=== PATIENT | female | born 1980 | race Caucasian/White ===

== ENCOUNTER 2018-08-12 12:10 | Emergency (ER) | payer BC, MEDICAID, OTHER ==
[2018-08-12 12:29] VITALS: BP 158/105
--- NOTE | 2018-08-12 12:40 | EDM.PDOC ---
ED HPI GENERAL MEDICAL PROBLEM - General Chief Complaint: Back Pain or Injury Stated Complaint: BACK PAIN Time Seen by Provider: 08/12/18 12:39 Source of Information: Reports: Patient - History of Present Illness INITIAL COMMENTS - FREE TEXT/NARRATIVE: Patient is here for evaluation of worsening chronic lower back pain. She states that she has had this for many years, does get pain injections from pain management at [facility] in [place] for the last one was in February 2018. She presents to the emergency department today as she is having worsening lower back pain, right in the middle of the very low back. She reports bilateral leg leg weakness, she feels it's fairly equal both sides. She has also had new onset urinary incontinence without stress or urgency. Neck patient denies any fever or chills. Denies any chest pain or shortness of breath. Denies any incontinence of stool. Denies a numbness or tingling/no saddle paresthesia. 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: motrin last dose pt is not sure-maybe midnoc Lower Back Pain Score (Numeric/FACES): 10 - Related Data Allergies Allergy/AdvReac Type Severity Reaction Status Date / Time latex Allergy Rash Verified 08/13/17 15:52 LEGAL INSTRUCTOR topiramate [From Topamax] AdvReac Hyperactivi Verified 08/13/17 15:52 LEGAL INSTRUCTOR ty zolpidem tartrate AdvReac Hallucinati Verified 08/13/17 15:52 LEGAL INSTRUCTOR [From Ambien] ons Home Meds: Home Meds Thyroid,Pork [[place] Thyroid] 180 mg PO DAILY 07/29/16 [History] Lisinopril 10 mg PO BID 30 Days #60 tablet 08/14/17 [Rx] Acetaminophen/HYDROcodone [[place] 325-5 MG] 1 tab PO Q6H PRN #10 tablet 08/12/18 [Rx] Albuterol Sulfate [Proventil Hfa] 2 puff INH ASDIRECTED 08/12/18 [History] Amoxicillin 500 mg PO BID 08/12/18 [History] Cyclobenzaprine [Flexeril] 10 mg PO TID PRN #30 tab 08/12/18 [Rx] Meloxicam 7.5 mg PO DAILY PRN #30 tablet 08/12/18 [Rx] Ondansetron [Zofran] 4 mg PO Q6H PRN #10 tab 08/12/18 [Rx] Past Medical History Other HEENT History: wears glasses Cardiovascular History: Reports: Hypertension Respiratory History: Reports: Asthma Gastrointestinal History: Reports: Other (See Below) Other Gastrointestinal History: occasional heartburn Genitourinary History: Reports: Renal Calculus BOAT WORKER History: Reports: Polycystic Ovaries, Musculoskeletal History: Reports: Arthritis, Back Pain, Chronic, Fibromyalgia, Other (See Below) Neurological History: Reports: Other (See Below) Other Neuro History: states has herniated cervical disc Psychiatric History: Reports: Anxiety, Depression Endocrine/Metabolic History: Reports: Hypothyroidism, Obesity/BMI 30+ - Past Surgical History Head Surgeries/Procedures: Reports: None Female Surgical History: Reports: Section, LEEP, Tubal Ligation Social & Family History - Family History Family Medical History: Noncontributory - Tobacco Use Smoking Status *Q: Current Every Day Smoker Years of Tobacco use: 16 Packs/Tins Daily: 0.5 - Caffeine Use Caffeine Use: Reports: Coffee, Soda - Recreational Drug Use Recreational Drug Use: No ED ROS GENERAL - Review of Systems Review Of Systems: See Below Constitutional: Reports: No Symptoms Respiratory: Reports: No Symptoms Cardiovascular: Reports: No Symptoms GI/Abdominal: Reports: No Symptoms, Other (Denies loss of bowel function) : Reports: Incontinence. Denies: Discharge, Dysuria, Frequency, Hematuria Musculoskeletal: Reports: Back Pain, Muscle Pain, Muscle Stiffness Skin: Reports: No Symptoms Neurological: Reports: Weakness Psychiatric: Reports: No Symptoms (Bilateral lower extremities) ED EXAM,LOWER BACK PAIN/INJURY - Physical Exam Exam: See Below Exam Limited By: No Limitations General Appearance: Alert, WD/WN, Moderate Distress Respiratory/Chest: No Respiratory Distress, Lungs Clear, Normal Breath Sounds Cardiovascular: Normal Peripheral Pulses, Regular Rate, Rhythm, No Murmur Back Exam: Normal Inspection, Decreased Range of Motion (Due to pain), Paraspinal Tenderness (Lumbar), Other (Lumbar spine without ecchymosis or deformity. Moderate tenderness to sacrum as well as bilateral SI joints and lumbar paraspinous muscles. Lumbar range of motion very limited due to pain. Unable to obtain SLR due to pain, patient had pain with lying flat..). No: CVA Tenderness (L), CVA Tenderness (R), Vertebral Tenderness Neurological: Alert, Normal Mood/Affect, Oriented x 3 Course - Vital Signs Last Recorded V/S: Last Vital Signs Temp 98.2 F 08/12/18 12:28 Pulse 98 08/12/18 12:28 Resp 20 08/12/18 12:28 BP 158/105 H 08/12/18 12:28 Pulse Ox 99 08/12/18 12:28 - Orders/Labs/Meds Orders: Active Orders 24 hr Category Date Time Status Lumbar Spine 2 or 3V [CR] Stat Exams 08/12/18 13:41 Taken Saline Lock Insert [OM.PC] Routine Oth 08/12/18 12:57 Ordered Labs: Laboratory Tests 08/12/18 Range/Units 16:37 Urine Color Yellow (Yellow) Urine Appearance Slt cloudy H (Clear) Urine pH 6.0 (5.0-8.0) Ur Specific [place] > or = 1.030 (1.005-1.030) Urine Protein 2+ H (Negative) Urine Glucose (UA) Negative (Negative) Urine Ketones Trace H (Negative) Urine Occult Blood Negative (Negative) Urine Nitrite Negative (Negative) Urine Bilirubin 1+ H (Negative) Urine Urobilinogen 0.2 (0.2-1.0) Ur Leukocyte Esterase Negative (Negative) Urine RBC 0-5 (0-5) /hpf Urine WBC 0-5 (0-5) /hpf Ur Epithelial Cells 10-20 H (0-5) /hpf Amorphous Sediment Few H (NOT SEEN) /hpf Urine Bacteria Moderate H (FEW) /hpf Urine Mucus Moderate H (FEW) /hpf Meds: Medications Discontinued Medications Generic Name Dose Route Start Last Admin Trade Name Eleni PRN Reason Stop Dose Admin Hydrocodone Bitart/Acetaminophen 1 tab 08/12/18 14:03 08/12/18 14:39 [place] 325-5 Mg PO 08/12/18 14:04 1 tab ONETIME ONE Administration Cyclobenzaprine HCl 10 mg 08/12/18 12:57 08/12/18 13:30 Flexeril PO 08/12/18 12:58 10 mg ONETIME ONE Administration Ketorolac Tromethamine 30 mg 08/12/18 12:57 08/12/18 13:27 Toradol IVPUSH 08/12/18 12:58 Not Given ONETIME ONE Ketorolac Tromethamine 60 mg 08/12/18 13:27 08/12/18 13:30 Toradol IM 08/12/18 13:28 60 mg ONETIME ONE Administration Ondansetron HCl 4 mg 08/12/18 14:03 08/12/18 14:39 Zofran Odt PO 08/12/18 14:04 4 mg ONETIME ONE Administration Sodium Chloride 10 ml 08/12/18 12:57 Saline Flush FLUSH ASDIRECTED PRN Keep Vein Open - Re-Assessments/Exams Free Text/Narrative Re-Assessment/Exam: Urinalysis concentrated but no sign of infection. No abnormality noted on lumbar x-ray. With patient acutely worsening symptoms as well as urinary incontinence lumbar MRI was performed. This demonstrated mild degenerative changes. No areas of neural foraminal stenosis. I suspect a good portion of patient's symptoms are due to muscle spasm. Patient will take meloxicam, cyclobenzaprine as needed for muscle spasms. Small quantity of [place] was given for breakthrough pain. Patient is to follow-up with her mirror painter to discuss repeat injection or further treatment options. She will follow-up with her PCP for urinary symptoms. 08/12/18 21:17 Departure - Departure Time of Disposition: 17:34 Disposition: Home, Self-Care 01 Condition: Fair Clinical Impression: Bulging lumbar disc Lower back pain Qualifiers: Chronicity: chronic Back pain laterality: bilateral Sciatica laterality: bilateral sciatica - Discharge Information Prescriptions: Acetaminophen/HYDROcodone [[place] 325-5 MG] 1 tab PO Q6H PRN #10 tablet PRN Reason: Pain Cyclobenzaprine [Flexeril] 10 mg PO TID PRN #30 tab PRN Reason: Muscle Spasm Meloxicam 7.5 mg PO DAILY PRN #30 tablet PRN Reason: Pain Ondansetron [Zofran] 4 mg PO Q6H PRN #10 tab PRN Reason: Nausea Instructions: Back Pain, Adult Referrals: Ailyn Romano NP [Primary Care Provider] - Forms: ED Department Discharge Additional Instructions: Take the meloxicam one to 2 tablets my mouth daily for inflammation. Take the cyclobenzaprine, 10 mg up to 3 times a day as needed for muscle spasm. Take the hydrocodone as needed for breakthrough pain. He had been prescribed Zofran to help with nausea if that should occur with this medication. Follow-up with your primary provider and ear pain management provider next week or return to the emergency room for any new or worsening symptoms. - My Orders Last 24 Hours: My Active Orders 08/12/18 12:57 Saline Lock Insert [OM.PC] Routine 08/12/18 13:41 Lumbar Spine 2 or 3V [CR] Stat - Assessment/Plan Last 24 Hours: My Active Orders 08/12/18 12:57 Saline Lock Insert [OM.PC] Routine 08/12/18 13:41 Lumbar Spine 2 or 3V [CR] Stat
[2018-08-12] MEDS ORDERED: Ketorolac 30 MG/ML SDV IVPUSH ONE (12:57)
[2018-08-12] MEDS ORDERED: Sodium Chloride 0.9% 10 ML Syringe FLUSH PRN (12:57)
[2018-08-12] MEDS ORDERED: Cyclobenzaprine 10 MG Tab PO ONE (12:57)
[2018-08-12] MEDS ORDERED: Ketorolac 60 MG/2 ML SDV IM ONE (13:27)
[2018-08-12] MEDS ORDERED: Ondansetron 4 MG Tab.DIS PO ONE (14:03)
[2018-08-12] MEDS ORDERED: Acetaminophen/HYDROcodone 325-5 MG Tab PO ONE (14:03)
--- NOTE | 2018-08-12 15:57 | MR ---
MRI lumbar spine Technique: T1 weighted axial images were obtained from above the T12-L1 disc inferiorly through the L5-S1 disc. T2-weighted axial images were obtained from above the L1-L2 disc inferiorly through the L5-S1 disc. T1, T2 and fat suppressed inversion recovery sagittal images were obtained. Comparison: Prior lumbar spine plain film study performed on the same day (2:07 PM) Findings: T12-L1: Posterior disc is preserved. No central canal stenosis or neural foraminal stenosis is seen. L1-L2: Small disc protrusion or small herniation is seen posterolaterally to the left of midline on the left side. This measures about 4 mm in size. No central canal stenosis or neural foraminal stenosis is seen. L2-L3: Minimal posterolateral disc bulging is seen. Findings are slightly worse on the left side projecting into the inferior neural foramina. No central canal stenosis is noted. Neural foramina are patent where the nerve roots exit. L3-L4: Minimal circumferential disc bulge is seen. Posterior disc has a planar margin. No central canal stenosis is seen. Neural foramina are patent where the nerve roots exit. L4-L5: Slight circumferential disc bulge is seen. No central canal stenosis is noted. Neural foramina are patent where the nerve roots exit. L5-S1: Posterior disc is preserved. No central canal stenosis or neural foraminal stenosis is seen. Degenerative dehydration change is noted within the L2-3 and L4-L5 discs. Conus medullaris and cauda equina shows no abnormal signal or mass. Impression: 1. Mild degenerative change as noted above. Diagnostic code #2
--- NOTE | 2018-08-13 15:18 | CR ---
Lumbar spine: AP and lateral views of the lumbar spine were obtained. Comparison: No previous study. Slight scoliosis is noted. Minimal posterior disc space narrowing is noted at L4-L5. Moderate disc space narrowing is noted at T10-T11 as well as T11-T12 and T12-L1. Mild disc space narrowing is noted at L1-L2. Vertebral body heights are maintained. Minimal scattered endplate osteophytes are seen most prominent at T10-T11. Pedicles as well as visualized transverse and spinous processes are intact. Sacroiliac joints are within normal limits. Impression: 1. Mild scoliosis and degenerative change. Diagnostic code #2
== END 2018-08-12 17:53 | disposition home or self-care (01) ==
LOC: JD.ED 12:10
DX: M51.86 Other intervertebral disc disorders, lumbar region (principal); M54.42 Lumbago with sciatica, left side; M54.41 Lumbago with sciatica, right side; I10 Essential (primary) hypertension; E03.9 Hypothyroidism, unspecified; F41.9 Anxiety disorder, unspecified; F32.9 Major depressive disorder, single episode, unspecified; F17.210 Nicotine dependence, cigarettes, uncomplicated; Z91.040 Latex allergy status; Z88.8 Allergy status to other drugs, medicaments and biological substances; Z79.899 Other long term (current) drug therapy
CPT/HCPCS: 72100; 72148; 81001; 96372; 99284; A9270; J1885

== ENCOUNTER 2024-04-19 10:00 | Day surgery (SDC) | payer BC, MEDICAID ==
[~2024-04-19 10:00] MED LIST: Dexamethasone 4 MG/ML 5 ML MDV ONE; HYDROmorphone 0.5 MG/0.5 ML Syringe IVPUSH PRN; Ketorolac 30 MG/ML SDV ONE; Lidocaine 2% 5 ML SDV ONE; Midazolam 1 MG/ML 2 ML SDV ONE; Ondansetron 4 MG/2 ML SDV IVPUSH PRN; Ondansetron 4 MG/2 ML SDV ONE; Propofol 200 MG/20 ML SDV ONE; Ropivacaine 0.5% 5 MG/ML 30 ML SDV ONE; Sodium Chloride 0.9% 10 ML Syringe FLUSH PRN; Sodium Chloride 0.9% 10 ML Syringe FLUSH SCH; Sodium Chloride 0.9% 100 ML ONE; ceFAZolin 2 GM Vial ONE; dexmedeTOMIDine HCl 200 MCG/2 ML SDV ONE; fentaNYL 100 MCG/2 ML SDV IVPUSH PRN; fentaNYL 100 MCG/2 ML SDV ONE
[2024-04-19] MEDS: Lactated Ringers 1,000 ML IV SCH (10:30)
[2024-04-19] MEDS: Acetaminophen 325 MG Tab PO ONE (10:39)
[2024-04-19] MEDS: Scopalamine 1mg/3day Transdermal Patch TOP PRN (10:40)
[2024-04-19] MEDS: Gabapentin 300 MG Cap PO ONE (10:40)
[2024-04-19] MEDS ORDERED: ceFAZolin 2 GM Vial ONE (11:16)
[2024-04-19] MEDS ORDERED: fentaNYL 100 MCG/2 ML SDV ONE (11:20)
[2024-04-19] MEDS: EPINEPHrine 1 MG/ML SDV ONE (11:30)
[2024-04-19] MEDS: Lidocaine 1% with EPINEPHrine 1:100,000 20 ML MDV ONE (11:30)
[2024-04-19] MEDS: Bupivacaine 0.5% 30 ML SDV ONE (11:30)
[2024-04-19] MEDS ORDERED: traMADol 50 MG Tab PO PRN (12:39)
[2024-04-19 13:41] VITALS: BP 126/74; PULSE 76
== END 2024-04-19 13:35 | disposition home or self-care (01) ==
LOC: JD.SDS 10:00
PROVIDERS: ATTEND Surgery
DX: N60.11 Diffuse cystic mastopathy of right breast (principal); J45.909 Unspecified asthma, uncomplicated; I10 Essential (primary) hypertension; E03.9 Hypothyroidism, unspecified; Z79.890 Hormone replacement therapy; Z79.899 Other long term (current) drug therapy; Z91.040 Latex allergy status; Z88.8 Allergy status to other drugs, medicaments and biological substances
CPT/HCPCS: 19301; A9270; J0171; J0665; J0690; J1100; J1885; J2250; J2405; J2704; J2795; J3010; J3490; J7120; 00400; 64450

== ENCOUNTER 2024-07-22 20:09 | Emergency (ER) | payer BC ==
[2024-07-22] MEDS ORDERED: Sodium Chloride 0.9% 10 ML Syringe FLUSH PRN (20:47)
[2024-07-22 20:54] LABS: BASOPHILS ABSOLUTE AUTO 0.1 K/mm3 (0.0-0.2); BASOPHILS PERCENT AUTO 0.5 % (0.0-1.0); EOSINOPHILS ABSOLUTE AUTO 0.4 K/mm3 (0.0-0.4); EOSINOPHILS PERCENT AUTO 3.9 % (0.0-6.0); HEMATOCRIT 42.9 % (37.0-47.0); HEMOGLOBIN 14.3 gm/dl (12.0-16.0); IMMATURE GRAN ABSOLUTE AUTO 0.03 K/mm3 (0.00-0.05); IMMATURE GRAN PERCENT AUTO 0.3 % (0.0-0.4); LYMPHOCYTES ABSOLUTE AUTO 2.5 K/mm3 (1.0-4.8); LYMPHOCYTES PERCENT AUTO 26.7 % (24.0-44.0); MEAN CORPUSCULAR HEMOGLOBIN 29.5 pg (28.0-32.0); MEAN CORPUSCULAR HGB CONC 33.3 g/dl (32.0-36.0); MEAN CORPUSCULAR VOLUME 88.6 fl (83.0-99.0); MEAN PLATELET VOLUME 10.3 fl (9.4-12.3); MONOCYTES ABSOLUTE AUTO 0.5 K/mm3 (0.0-0.8); MONOCYTES PERCENT AUTO 5.6 % (0.0-8.0); NEUTROPHILS ABSOLUTE AUTO 5.9 K/mm3 (1.8-7.7); PLATELET COUNT,PLT 285 K/mm3 (150-400); RED BLOOD CELL COUNT 4.84 M/mm3 (4.10-5.30); WHITE BLOOD CELL COUNT,WBC 9.29 K/mm3 (3.9-11.3)
[2024-07-22] MEDS: Sodium Chloride 0.9% 1,000 ML IV ONE (20:56)
[2024-07-22] MEDS: Ketorolac 15 MG/ML SDV IVPUSH ONE (20:56)
[2024-07-22 21:08] LABS: A/G RATIO 0.9 (1-2); ALBUMIN 3.3 g/dl (3.4-5.0); ANION GAP 12.6 (5-15); BILIRUBIN TOTAL 0.3 mg/dL (0.2-1.0); BUN/CREATININE RATIO 8.9 (14-18); CALCIUM 8.9 mg/dL (8.5-10.1); CREATININE 0.9 mg/dL (0.55-1.02); EST CRCL DRUG DOSING (CG) 91.09 mL/min; POTASSIUM,K 3.6 mEq/L (3.5-5.1); PROTEIN TOTAL,TP 6.8 g/dl (6.4-8.2)
[2024-07-22] MEDS: Iopamidol 612 MG/ML 30 ML SDV IVPUSH ONE (21:23)
[2024-07-22] MEDS: Sodium Chloride 0.9% 10 ML Syringe FLUSH ONE (21:23)
[2024-07-22] MEDS: Iopamidol 612 MG/ML 100 ML Bottle IVPUSH ONE (21:23)
[2024-07-22] MEDS: HYDROmorphone 1 MG/ML Syringe IVPUSH ONE (22:28)
[2024-07-22] MEDS: Ondansetron 4 MG/2 ML SDV IVPUSH ONE (23:26)
[2024-07-22 23:40] VITALS: BP 110/78; PULSE 88
== END 2024-07-22 23:32 | disposition home or self-care (01) ==
LOC: JD.ED 20:09
DX: K57.32 Diverticulitis of large intestine without perforation or abscess without bleeding (principal); M54.42 Lumbago with sciatica, left side; M54.41 Lumbago with sciatica, right side; R74.8 Abnormal levels of other serum enzymes; I10 Essential (primary) hypertension; J45.909 Unspecified asthma, uncomplicated; E66.9 Obesity, unspecified; E03.9 Hypothyroidism, unspecified; Z68.41 Body mass index [BMI] 40.0-44.9, adult; Z79.899 Other long term (current) drug therapy; Z79.890 Hormone replacement therapy; Z79.51 Long term (current) use of inhaled steroids; Z91.040 Latex allergy status; Z88.8 Allergy status to other drugs, medicaments and biological substances
CPT/HCPCS: 36415; 74177; 80053; 83690; 84703; 85025; 96361; 96374; 96375; 99284; J1171; J1885; J2405; J7030; Q9967

== ENCOUNTER 2024-11-20 04:21 | Emergency (ER) | payer BC ==
[2024-11-20] MEDS ORDERED: Sodium Chloride 0.9% 10 ML Syringe FLUSH PRN (04:41)
[2024-11-20] MEDS: Albuterol/Ipratropium 3.0-0.5 MG/3 ML Neb Soln NEB ONE (04:49)
[2024-11-20] MEDS: methylPREDNISolone Sodium Succinate 125 MG/2 ML SDV IVPUSH ONE (04:57)
[2024-11-20 05:16] LABS: ALANINE AMINOTRANSFERASE,ALT 75 U/L (14-59); ALBUMIN 3.5 g/dl (3.4-5.0); ALKALINE PHOSPHATASE 83 U/L (46-116); ANION GAP 13.8 (5-15); ASPARTATE AMNIOTRANSFERASE,AST 31 U/L (15-37); BILIRUBIN TOTAL 0.5 mg/dL (0.2-1.0); BLOOD UREA NITROGEN,BUN 11 mg/dL (7-18); BUN/CREATININE RATIO 12.2 (14-18); CALCIUM 8.5 mg/dL (8.5-10.1); CARBON DIOXIDE,CO2 26 mEq/L (21-32); CHLORIDE,CL 104 mEq/L (98-107); CREATININE 0.9 mg/dL (0.55-1.02); EST CRCL DRUG DOSING (CG) 91.09 mL/min; ESTIMATED GFR 80 mL/min (>60); GLUCOSE RANDOM 137 mg/dL (70-99); MAGNESIUM 1.8 mg/dL (1.8-2.4); POTASSIUM,K 3.8 mEq/L (3.5-5.1); SODIUM,NA 140 mEq/L (136-145)
[2024-11-20 05:33] LABS: BASOPHILS ABSOLUTE AUTO 0.1 K/mm3 (0.0-0.2); BASOPHILS PERCENT AUTO 0.7 % (0.0-1.0); EOSINOPHILS ABSOLUTE AUTO 0.4 K/mm3 (0.0-0.4); HEMATOCRIT 45.2 % (37.0-47.0); HEMOGLOBIN 15.1 gm/dl (12.0-16.0); IMMATURE GRAN ABSOLUTE AUTO 0.02 K/mm3 (0.00-0.05); IMMATURE GRAN PERCENT AUTO 0.2 % (0.0-0.4); LYMPHOCYTES ABSOLUTE AUTO 2.4 K/mm3 (1.0-4.8); LYMPHOCYTES PERCENT AUTO 27.7 % (24.0-44.0); MEAN CORPUSCULAR HEMOGLOBIN 29.6 pg (28.0-32.0); MEAN CORPUSCULAR HGB CONC 33.4 g/dl (32.0-36.0); MEAN CORPUSCULAR VOLUME 88.6 fl (83.0-99.0); MEAN PLATELET VOLUME 10.7 fl (9.4-12.3); MONOCYTES ABSOLUTE AUTO 0.5 K/mm3 (0.0-0.8); MONOCYTES PERCENT AUTO 6.2 % (0.0-8.0); NEUTROPHILS ABSOLUTE AUTO 5.2 K/mm3 (1.8-7.7); NEUTROPHILS PERCENT AUTO 60.2 % (41.0-71.0); PLATELET COUNT,PLT 287 K/mm3 (150-400); WHITE BLOOD CELL COUNT,WBC 8.59 K/mm3 (3.9-11.3)
[2024-11-20 05:35] LABS: TROPONIN I HIGH SENSITIVITY < 4 pg/mL (<=51)
[2024-11-20 06:37] VITALS: BP 124/111; PULSE 102
== END 2024-11-20 06:33 | disposition home or self-care (01) ==
LOC: JD.ED 04:21
DX: J45.41 Moderate persistent asthma with (acute) exacerbation (principal); R07.9 Chest pain, unspecified; I10 Essential (primary) hypertension; J45.909 Unspecified asthma, uncomplicated; E03.9 Hypothyroidism, unspecified; E66.9 Obesity, unspecified; Z68.41 Body mass index [BMI] 40.0-44.9, adult; Z86.16 Personal history of COVID-19; Z79.899 Other long term (current) drug therapy; Z79.890 Hormone replacement therapy; Z88.8 Allergy status to other drugs, medicaments and biological substances; Z91.040 Latex allergy status
CPT/HCPCS: 36415; 71045; 80053; 83735; 84484; 85025; 93005; 94640; 96374; 99285; J2919; J7620; 93010; 99284; A9270-GY